=== PATIENT | male | born 1980 | race Caucasian/White ===

== ENCOUNTER 2019-02-26 01:08 | Emergency (ER) | payer MEDICAID, OTHER ==
[~2019-02-26] VITALS: Ht 172.7 cm; Wt 72.7 kg
[~2019-02-26 01:08] MED LIST: BENZ1TAB10 PO; HALO10 PO; LITH300C3 PO
[2019-02-26] MEDS ORDERED: HALO5TAB2 PO (01:19)
[2019-02-26] MEDS ORDERED: IBUPROFEN 800 MG TABLET PO ONE (01:30)
[2019-02-26 02:24] VITALS: BP 125/77
== END 2019-02-26 02:28 | disposition home or self-care (01) ==
LOC: EMS 01:09
DX: S93.601A Unspecified sprain of right foot, initial encounter (principal); F17.210 Nicotine dependence, cigarettes, uncomplicated; F31.9 Bipolar disorder, unspecified; F20.9 Schizophrenia, unspecified; Z79.899 Other long term (current) drug therapy; Y93.39 Activity, other involving climbing, rappelling and jumping off; Y93.89 Activity, other specified; Y92.89 Other specified places as the place of occurrence of the external cause; Y99.8 Other external cause status

== ENCOUNTER 2019-06-03 23:50 | Inpatient (IN) | payer MEDICAID ==
[~2019-06-03] VITALS: Ht 172.7 cm; Wt 86.6 kg
[~2019-06-03 23:50] MED LIST changes: -HALO10 PO; +HALO5TAB2 PO; -LITH300C3 PO
[2019-06-04] MEDS ORDERED: HALOPERIDOL 5 MG TABLET PO PRN (04:30)
[2019-06-04] MEDS ORDERED: ZOLPIDEM TARTRATE 10 MG TABLET PO PRN (04:30)
[2019-06-04 06:01] VITALS: BP 131/86
[2019-06-04 09:29] VITALS: BP 116/62
[2019-06-04] MEDS: ESCITALOPRAM OXALATE 10 MG TABLET PO SCH (10:45)
[2019-06-04] MEDS: BENZTROPINE MESYLATE 1 MG TABLET PO SCH (16:32)
[2019-06-04 17:31] VITALS: BP 118/68
[2019-06-04] MEDS: HALOPERIDOL 5 MG TABLET PO SCH (20:41)
[2019-06-05 06:04] VITALS: BP 122/72
[2019-06-05 08:09] VITALS: BP 123/73
[2019-06-05] MEDS: ESCITALOPRAM OXALATE 10 MG TABLET PO SCH (08:37)
[2019-06-05] MEDS: BENZTROPINE MESYLATE 1 MG TABLET PO SCH ×2 (08:37→16:59)
[2019-06-05 16:14] VITALS: BP 118/72
[2019-06-05] MEDS: HALOPERIDOL 5 MG TABLET PO SCH (20:14)
[2019-06-05] MEDS: LORazepam 1 MG TABLET PO PRN (20:14)
[2019-06-06 06:04] VITALS: BP 124/75
[2019-06-06] MEDS: BENZTROPINE MESYLATE 1 MG TABLET PO SCH ×2 (08:47→16:37)
[2019-06-06] MEDS: ESCITALOPRAM OXALATE 10 MG TABLET PO SCH (08:47)
[2019-06-06 16:00] VITALS: BP 128/82
[2019-06-06] MEDS: LORazepam 1 MG TABLET PO PRN (16:37)
[2019-06-06] MEDS: HALOPERIDOL 5 MG TABLET PO SCH (20:34)
[2019-06-07 06:26] VITALS: BP 122/78
[2019-06-07] MEDS: BENZTROPINE MESYLATE 1 MG TABLET PO SCH ×2 (08:59→16:08)
[2019-06-07] MEDS: ESCITALOPRAM OXALATE 10 MG TABLET PO SCH (08:59)
[2019-06-07 09:16] VITALS: BP 125/68
[2019-06-07] MEDS ORDERED: ESCI10TA PO (15:40)
[2019-06-07 16:46] VITALS: BP 139/78
== END 2019-06-07 18:33 | disposition home or self-care (01) | DRG 750 ==
LOC: B3A 06-04 04:20
DX: F25.1 Schizoaffective disorder, depressive type (principal); Z59.0 Homelessness; Z65.3 Problems related to other legal circumstances; Z79.899 Other long term (current) drug therapy; Z91.5 Personal history of self-harm